=== PATIENT | female | born 1970 | race Caucasian/White ===

== ENCOUNTER 2018-01-22 12:07 | Emergency (ER) | payer BC ==
[2018-01-22 13:57] LABS: #Basophils 0.1 thou/uL (0.0-0.2); #Eosinphils 0.2 thou/uL (0.0-0.7); #Lymphocytes 2.2 thou/uL (1.20-3.40); #Monocytes 0.5 thou/uL (0.11-0.59); #Neutrophils 5.6 thou/uL (1.40-6.50); %Basophils 1.3 % (0.0-1.0); %Eosinophils 2.9 % (0.0-10.0); %Lymphocytes 25.6 % (21.0-51.0); %Monocytes 5.7 % (0.0-10.0); %Neutrophils 64.5 % (42.0-75.0); Hemoglobin 14.2 g/dL (12.0-16.0); Mean Corpuscular HGB CONC 32.8 g/dL (32.0-36.0); Mean Corpuscular Hemoglobin 28.1 pg (27.0-31.0); Mean Corpuscular Volume 85.9 fl (81.0-99.0); Mean Platelet Volume 8.5 fL (7.4-10.4); Platelet Count 230 thou/uL (130-400); RBC Distribution Width 12.9 % (11.5-14.5); Red Blood Cell (RBC) Count 5.04 mill/uL (4.20-5.40); White Blood Cell (WBC) Count 8.6 thou/uL (4.8-10.8)
[2018-01-22] MEDS ORDERED: Ondansetron HCl/PF 4 MG/2 ML Vial ONE ×2 (14:03→17:20)
[2018-01-22 14:20] LABS: ALT (SGPT) 13 U/L (8-55); AST (SGOT) 18 U/L (5-34); Albumin 3.7 g/dL (3.5-5.0); Alkaline Phosphatase 58 U/L (40-150); Anion Gap 9 mmol/L (10-20); BUN (Urea Nitrogen) 13 mg/dL (7.0-18.7); Bilirubin, Total 0.3 mg/dL (0.2-1.2); Calc. Creatinine Clearance 0 mL/min (70-130); Calcium 8.8 mg/dL (7.8-10.44); Carbon Dioxide 28 mmol/L (22-29); Chloride 103 mmol/L (98-107); Estimated GFR-MDRD 78; Glucose 80 mg/dL (70-105); Potassium 3.9 mmol/L (3.5-5.1); Protein, Total 6.7 g/dL (6.0-8.3); Sodium 136 mmol/L (136-145)
--- NOTE | 2018-01-22 16:15 | CT ---
CT ABDOMEN AND PELVIS WITH IV AND ORAL CONTRAST: Date: 01/22/18 HISTORY: Abdominal pain. FINDINGS: Gallbladder is surgically absent. There is extensive scarring involving the cortex of each kidney wit h small foci of dystrophic calcification. No hydronephrosis. Urinary bladder is decompressed. No evid ence of bowel obstruction. Appendix is not inflamed. Diverticula arise from the colon without adjacen t inflammation. IMPRESSION: 1. Prominent bilateral renal cortical scarring, suggesting history of recurrent urinary tract infect ions. No evidence of obstruction or acute inflammation. 2. Diverticulosis. No evidence of diverticulitis. POS: [facility]
[2018-01-22] MEDS ORDERED: Lidocaine Viscous Sol 2% 15 ml UD Cup ONE (17:20)
[2018-01-22 17:27] LABS: Bilirubin Negative (Negative); Blood, Urine Negative (Negative); Clarity CLEAR (Clear); Glucose, Urine (Dipstick) Negative (Negative); Leukocyte Trace (Negative); Nitrite Negative (Negative); Protein, Urine (Dipstick) Negative (Neg-Trace); Specific Gravity, Urine 1.007 (1.002-1.036); Urobilinogen 0.2 mg/dL (0.2-1.0); pH, Urine 6.5 (5.0-9.0)
[2018-01-22 17:29] LABS: Bacteria/HPF 4+ HPF (None Seen); Hyaline Casts/LPF 0-3 HYALINE CAST LPF (0-3 Hyaline); RBC/HPF 0-3 HPF (0-3); Squamous Epithelial None Seen HPF (0-3); WBC/HPF 0-3 HPF (0-3)
[2018-01-22] MEDS ORDERED: GoLYTELY 4,000 ml Bottle PO SCH (17:30)
== END 2018-01-22 20:46 | disposition home or self-care (01) ==
LOC: ERS 12:07
DX: K59.00 Constipation, unspecified (principal); F41.9 Anxiety disorder, unspecified; F17.210 Nicotine dependence, cigarettes, uncomplicated; Z71.6 Tobacco abuse counseling; Z79.899 Other long term (current) drug therapy
CPT/HCPCS: 36415; 74177; 80053; 81003; 81015; 83605; 83690; 85025; 86850; 86900; 86901; 96361; 96374; 96376; 99406; J2405

== ENCOUNTER 2018-05-18 12:37 | Outpatient (CLI) | payer BC ==
--- NOTE | 2018-05-18 14:29 | MRI ---
MRI LUMBAR SPINE WITHOUT CONTRAST: Technique: Multiplanar, multisequence MRI images were obtained of the lumbar spine. Indications: Right lumbar radiculopathy. FINDINGS: The lumbar vertebrae maintain normal height and alignment. Disc spaces are preserved. There is broad based disc bulge seen at the T11-12 and T12-L1 levels which are incompletely evaluated on this exam. T11-12: There is diffuse disc bulge flattening the thecal sac and abutting the anterior conus. T12-L1: Diffuse bulge flattens the anterior thecal sac. There is a small asymmetric protrusion parace ntrally on the right indenting the anterior thecal sac on the right and abutting the anterior cord on the right. L1-2: No disc bulge or protrusion. No central canal or foraminal stenosis. Mild facet hypertrophy. L2-3: No significant disc bulge or protrusion. Mild facet arthrosis. No significant central canal or foraminal stenosis. L3-4: No significant disc bulge or protrusion. Mild facet arthrosis. No significant central canal or foraminal stenosis. L4-5: Mild disc bulge flattens the anterior thecal sac. There is asymmetric disc bulge/protrusion to the left which exhibits left foraminal encroachment and extends laterally on the left. This diffuse b ulge encroaches into the left foramen and produces left foraminal stenosis. Mild central canal stenos is. L5-S1: Mild diffuse disc bulge abuts the anterior thecal sac. No significant central canal stenosis. Foramina are patent. IMPRESSION: 1. Disc bulge at T11-12 abuts the anterior conus. 2. Small asymmetric effusion to the right at T12-L1. 3. Broad based bulge at L4-5 with asymmetric protrusion to the left with left foraminal encroachment as described above. 4. There is an oblong shaped high T2 signal lesion in the right lateral kidney and another irregularl y shaped high T2 signal in the medial right kidney. Because of the irregular shape of these lesions, simple cysts are not assumed. Suggest further evaluation with renal ultrasound. POS: [facility]
== END 2018-05-18 12:38 | disposition home or self-care (01) ==
LOC: TBSIIMAG 12:37
PROVIDERS: ATTEND Internal Medicine
DX: M51.16 Intervertebral disc disorders with radiculopathy, lumbar region (principal); M51.84 Other intervertebral disc disorders, thoracic region; G03.8 Meningitis due to other specified causes; M48.061 Spinal stenosis, lumbar region without neurogenic claudication
CPT/HCPCS: 72148

== ENCOUNTER 2018-09-04 09:10 | Outpatient (CLI) | payer BC ==
--- NOTE | 2018-09-04 11:33 | MRI ---
NONCONTRAST MRI CERVICAL SPINE: Date: 09/04/18 HISTORY: Chronic neck and low back pain. FINDINGS: Visualized base of the brain and cervicomedullary junction demonstrate a normal MRI appearance. There is minimal mucosal thickening seen in the posterior aspect of the left sphenoid sinus. Normal signal intensity is demonstrated in the bone marrow. C2-3 Level: There is no disc bulge or disc herniation. Central spinal canal and neural foramina are patent. C3-4 Level: There is no disc bulge or disc herniation. The central spinal canal and neural foramina are patent. C4-5 Level: There is mild broad based disc osteophyte complex with uncinate process hypertrophy on t he right. There is mild effacement of the ventral subarachnoid space. Neural foramina are patent. C5-6 Level: There is loss of intervertebral disc height. There is broad based disc osteophyte comple x which results in moderate narrowing of the central spinal canal. There is flattening of the anterio r aspect of the spinal cord without signal abnormality in the spinal cord. There is severe bilateral neural foraminal narrowing. Uncinate process hypertrophy is present at this level. C6-7 Level: There is a mild disc osteophyte complex. This results in mild generalized narrowing of t he central spinal canal. Uncinate process hypertrophy is also present. There is moderate right and se luz left-sided neural foraminal narrowing. C7-T1 Level: There is no disc bulge or disc herniation. Central spinal canal and neural foramina are patent. Paravertebral soft tissues are within normal limits. IMPRESSION: Disc degenerative changes at the C5-6 and C6-7 levels with severe bilateral neural foraminal narrowin g at C5-6 level and severe left-sided neural foraminal narrowing at the C6-7 level. POS: [facility]
== END 2018-09-04 09:11 | disposition home or self-care (01) ==
LOC: SCSMRI 09:10
PROVIDERS: ATTEND Psychiatry & Neurology Neurology
DX: M50.223 Other cervical disc displacement at C6-C7 level (principal); M99.81 Other biomechanical lesions of cervical region; M50.322 Other cervical disc degeneration at C5-C6 level
CPT/HCPCS: 72141

== ENCOUNTER 2019-04-26 14:55 | Outpatient (CLI) | payer BC, OTHER ==
--- NOTE | 2019-04-26 15:49 | RAD ---
CERVICAL SPINE 2 VIEWS: HISTORY: Chronic head and neck pain. Myelopathy. Symptoms radiate to both shoulders. FINDINGS: Predental space is normal. No prevertebral soft tissue swelling. Straightening of normal cervical l ordosis with slight reversal centered at the C5-C6 level. Moderate degenerative disk disease at C5-C 6. Limited evaluation of the cervicothoracic junction. Visualized cervical spine does not demonstra te fracture. On the AP projection, no malalignment. On the open mouth projection, the odontoid process is exclude d. The lateral masses of C1 and C2 articulate appropriately. IMPRESSION: Degenerative disk disease at C5-C6, corresponding to MRI performed on 09/04/2018. Please refer to MR I report for further details. POS: [facility]
--- NOTE | 2019-04-26 16:25 | MRI ---
MRI CERVICAL SPINE WITHOUT CONTRAST: 04/26/2019 COMPARISON: 09/04/2018 HISTORY: Chronic neck pain radiating down both shoulders and into bilateral arms. TECHNIQUE: Multiplanar, multisequence MR imaging of the cervical spine provided without contrast. FINDINGS: Sagittal STIR imaging demonstrates no focal area of osseous marrow edema. C2-3: Mild left facet hypertrophy with no significant central canal or neural foraminal stenosis. C3-4: Mild left facet hypertrophy. No significant central canal or neural foraminal stenosis. C4-5: Small central disc protrusion. No associated central canal stenosis. No significant neural f oraminal stenosis on either side. C5-6: There is disc space narrowing, disc desiccation, and disc bulge partially effacing the ventral thecal sac with a mild/moderate degree of central canal stenosis, stable when compared to the prior exam. There is bilateral facet hypertrophy as well. There is moderate left and mild/moderate right neural foraminal stenosis, similar when compared to prior imaging. C6-7: There is disc space narrowing and disc desiccation with mild disc bulge. There is a superimpo sed foraminal disc herniation on the left causing severe left neural foraminal stenosis. This left neural foraminal stenosis has worsened since the prior examination. C7-T1: No significant central canal or neural foraminal stenosis. There is no focal area of abnormal signal intensity within the cervical cord. IMPRESSION: There are degenerative changes involving C5-6 and C6-7, most prominent on the left at C6-7, where the re is a foraminal disc herniation causing severe left neural foraminal stenosis. Transcribed Date/Time: 04/26/2019 4:52 PM
== END 2019-04-26 14:56 | disposition home or self-care (01) ==
LOC: SCSMRI 14:55
PROVIDERS: ATTEND Neurological Surgery
DX: M50.022 Cervical disc disorder at C5-C6 level with myelopathy (principal); M47.12 Other spondylosis with myelopathy, cervical region; M48.02 Spinal stenosis, cervical region
CPT/HCPCS: 72040; 72141

== ENCOUNTER → 2019-06-21 | Day surgery (SDC) | payer BC, OTHER ==
[2019-06-18 12:52] VITALS: BMI 30.8
[~2019-06-21] MED LIST: Fentanyl 100 MCG/2 ML VIAL ONE; HYDROmorphone 2 MG/ML VIAL ONE; Ketamine 50 MG/ML (10ML VIAL) ONE; Meperidine HCl/PF 25 MG/ML VIAL ONE; SUGAMMADEX SODIUM 200 MG/2 ML VIAL ONE; Sodium Chloride 0.9% 10 ML ONE; ceFAZolin Sodium (SDC) 2 GM/100 ML BAG ONE
[2019-06-21 10:17] LABS: #Basophils 0.1 thou/uL (0.0-0.2); #Eosinphils 0.2 thou/uL (0.0-0.7); #Monocytes 0.6 thou/uL (0.11-0.59); %Basophils 0.8 % (0.0-1.0); %Eosinophils 2.3 % (0.0-10.0); %Lymphocytes 25.3 % (21.0-51.0); %Monocytes 7.3 % (0.0-10.0); %Neutrophils 64.2 % (42.0-75.0); Hemoglobin 14.2 g/dL (12.0-16.0); Mean Corpuscular HGB CONC 32.3 g/dL (32.0-36.0); Mean Corpuscular Hemoglobin 27.7 pg (27.0-31.0); Mean Corpuscular Volume 85.6 fL (78.0-98.0); Mean Platelet Volume 9.1 fL (7.4-10.4); Platelet Count 232 thou/uL (130-400); RBC Distribution Width 13.3 % (11.5-14.5); Red Blood Cell (RBC) Count 5.11 mill/uL (4.20-5.40); White Blood Cell (WBC) Count 7.8 thou/uL (4.8-10.8)
[2019-06-21 10:36] LABS: Anion Gap 10 mmol/L (10-20); BUN (Urea Nitrogen) 14 mg/dL (7.0-18.7); Calc. Creatinine Clearance 122 mL/min (70-130); Calcium 8.6 mg/dL (7.8-10.44); Carbon Dioxide 28 mmol/L (22-29); Chloride 104 mmol/L (98-107); Estimated GFR-MDRD 77; Glucose 83 mg/dL (70-105); Potassium 4.3 mmol/L (3.5-5.1); Sodium 138 mmol/L (136-145)
--- NOTE | 2019-06-21 15:30 | EKG ---
Test Reason : PREOP Blood Pressure : / mmHG Vent. Rate : 065 BPM Atrial Rate : 065 BPM P-R Int : 186 ms QRS Dur : 088 ms QT Int : 420 ms P-R-T Axes : 046 017 031 degrees QTc Int : 436 ms Normal sinus rhythm Normal ECG When compared with ECG of 20-JUN-2017 10:32, No significant change was found Confirmed by ZEYAD SOLIS, DR. Soliz ([id number]) on 06/21/2019 3:30:06 PM Referred By: FABIANA Confirmed By:DR. Heydi JEFFERS MD
--- NOTE | 2019-06-21 19:54 | OP ---
DATE OF PROCEDURE: 06/21/2019 DIRECTOR [employer]: Alan Newman PA-C PROCEDURES PERFORMED: Anterior cervical diskectomy C5-C6, and C6-C7, interbody arthrodesis, intervertebral biomechanical device, local morselized autograft, demineralized bone matrix, anterior titanium instrumentation C5-C6 and C6-7. DESCRIPTION OF PROCEDURE: The patient was brought to the operating room and intubated. She was positioned supine with the head in modest extension on a gel-filled donut. Incision was made in the right precervical area and dissected medial to the sternocleidomastoid muscle, identified the anterior cervical spinal, and the level was confirmed by x-ray. We debrided anterior osteophytes, placed distraction across the disk spaces, and using operative microscope and microdissection technique, completely decompressed the intervertebral disks at C5-C6 and C6-C7. Next, an anterior plate was brought into the field and secured to C5, C6, and C7 using two 14-mm screws at each level. The wound was then extensively irrigated. MAC hemostasis was secured. The wound was closed in anatomic layers. Job ID: [id number]
== END ==
LOC: SDC 08:40
PROVIDERS: ATTEND Neurological Surgery
PROC: 0RG2070 Fusion of 2 or more Cervical Vertebral Joints with Autologous Tissue Substitute, Anterior Approach, Anterior Column, Open Approach (ICD-10-PCS; principal; 2019-06-21)
PROC: 0RG2071 Fusion of 2 or more Cervical Vertebral Joints with Autologous Tissue Substitute, Posterior Approach, Posterior Column, Open Approach (ICD-10-PCS; principal; 2019-06-21)
PROC: 0RG20A0 Fusion of 2 or more Cervical Vertebral Joints with Interbody Fusion Device, Anterior Approach, Anterior Column, Open Approach (ICD-10-PCS; principal; 2019-06-21)
PROC: 0RT30ZZ Resection of Cervical Vertebral Disc, Open Approach (ICD-10-PCS; principal; 2019-06-21)
DX: M54.12 Radiculopathy, cervical region (principal); F41.9 Anxiety disorder, unspecified; F32.9 Major depressive disorder, single episode, unspecified
CPT/HCPCS: 36415; 76000; 80048; 85025; 93005; 93010; C1713; C1776; J0131; J0690; J1170; J2175; J3010; J3490

== ENCOUNTER 2019-07-06 09:27 | Outpatient (CLI) | payer BC, OTHER ==
--- NOTE | 2019-07-06 09:58 | RAD ---
Exam: Cervical spine 3 views COMPARISON: 04/26/2019 HISTORY: Status post cervical fusion FINDINGS: Interval placement of anterior fusion plate with transvertebral body screw at C5, C6 and C7 . No perihardware lucency. Disc prosthesis at C5-C6 and C6-C7. There is associated prevertebral soft swelling, presumed to be postoperative. No evidence of air in the prevertebral soft tissues. Pre dental space is normal. Cervical spine vertebral body height is maintained. No fracture IMPRESSION: Uncomplicated cervical fusion from C5 through C7. Prevertebral soft tissue swelling, pres umably postoperative. Continued surveillance is recommended to ensure resolution.
== END 2019-07-06 09:28 | disposition home or self-care (01) ==
LOC: TBSIIMAG 09:27
PROVIDERS: ATTEND Neurological Surgery
DX: M50.00 Cervical disc disorder with myelopathy, unspecified cervical region (principal); M79.89 Other specified soft tissue disorders; Z98.1 Arthrodesis status
CPT/HCPCS: 72040

== ENCOUNTER 2020-01-06 11:21 | Outpatient (CLI) | payer BC, OTHER ==
--- NOTE | 2020-01-06 12:39 | RAD ---
EXAM: Cervical spine 3 views: HISTORY: Neck pain COMPARISON: 07/06/2019 FINDINGS: Stable anterior cervical fusion changes at C5, C6, and C7. No evidence for acute fracture or dislocation involving the visualized spine. There are disc osteophytosis and facet arthrosis changes. No evidence for malalignment. No evidence for a bone lesion. IMPRESSION: Spondylosis. No significant acute process. Stable anterior cervical fusion changes
--- NOTE | 2020-01-06 13:40 | MRI ---
MRI Lumbar Spine Noncontrast: HISTORY: Severe low back pain with pain going down both legs. Lumbar radiculopathy. COMPARISON: 05/18/2018. FINDINGS: Focal scarring is again seen involving the right kidney similar to prior study. There is an oval-shap ed 2.5 cm increased T2-weighted signal intensity lesion at the lateral aspect superior pole right kidney with a smaller increased T2-weighted signal intensity structure seen at the medial aspect of t he right kidney which have not significantly changed when compared to the prior exam and statistically likely represent cysts. Few subcentimeter increased T2-weighted signal intensity lesion s are also again seen in the left kidney. Conus medullaris is normal in morphology and terminates at the L1-2 level. Subcentimeter increased T1 and T2-weighted signal intensity foci are seen in the L2 and L4 vertebral bodies likely representing small hemangiomas stable from prior study. T11-12: Mild diffuse disc osteophyte complex with central disc protrusion is present at the T11-12 le rylan and similar to the prior study. This results in mild generalized narrowing of the central spinal canal with mild flattening of the anterior aspect of the spinal cord. Neural foramina are molina nt. T12-L1: Minimal broad-based disc osteophyte complex is present with a right paracentral disc protrusi on. This effaces the right ventral lateral subarachnoid space with mild flattening of the anterior and central aspect of the spinal cord. Neural foramina are patent. L1-2: There is no disc bulge or disc herniation. Central spinal canal and neural foramina are patent. L2-3: Minimal disc osteophyte complex is present. Slight effacement of the ventral aspect of thecal s ac. Neural foramina are patent. Mild facet degenerative changes are seen with fluid signal intensity in the facet joints. L3-4: Minimal disc osteophyte complex with slight flattening the ventral aspect of thecal sac. There is no significant central canal or neural foraminal narrowing. Mild facet degenerative change are seen with fluid signal intensity in the facet joints. L4-5: Again noted is loss of intervertebral disc height. Broad-based disc osteophyte complex is prese nt. Facet degenerative changes are seen at this level. There is also asymmetric left foraminal disc bulge/protrusion again resulting in left-sided neural foraminal narrowing which approaches moderate i n severity. Mild right-sided neural foraminal narrowing is present. L5-S1: Mild disc osteophyte complex is present. Facet degenerative changes are present. Central spina l canal is patent. Neural foramina are also patent. IMPRESSION: 1. Overall stable MRI lumbar spine with degenerative changes greater in the lower lumbar spine and gr eatest at the L4-5 level where there is a broad-based disc osteophyte complex and a slightly greater left foraminal disc bulge/protrusion resulting in moderate left-sided neural foraminal narrow ing. 2. Stable renal cortical scarring on the right with increased T2-weighted signal intensity lesions ag ain seen in the superior pole of each kidney unchanged from prior study and are statistically likely related to renal cysts.
== END 2020-01-06 11:22 | disposition home or self-care (01) ==
LOC: TBSIIMAG 11:21
PROVIDERS: ATTEND Neurological Surgery
DX: M54.2 Cervicalgia (principal); M47.26 Other spondylosis with radiculopathy, lumbar region; M47.812 Spondylosis without myelopathy or radiculopathy, cervical region; M48.061 Spinal stenosis, lumbar region without neurogenic claudication; M25.78 Osteophyte, vertebrae; N28.89 Other specified disorders of kidney and ureter
CPT/HCPCS: 72040; 72148

== ENCOUNTER 2021-06-22 10:44 | Outpatient (CLI) | payer BC ==
[2021-06-22 18:31] LABS: SARS-CoV-2 PCR by NAA Not Detected (NotDetected)
== END 2021-06-22 10:45 | disposition home or self-care (01) ==
LOC: LABBT 10:44
PROVIDERS: ATTEND Neurological Surgery
DX: Z01.812 Encounter for preprocedural laboratory examination (principal); M54.2 Cervicalgia; Z20.822 Contact with and (suspected) exposure to COVID-19
CPT/HCPCS: U0003; U0005